=== PATIENT | male | born 1955 | race Caucasian/White ===

== ENCOUNTER → 2017-06-30 | Outpatient (CLI) | payer OTHER ==
[~2017-06-30] VITALS: Ht 177.8 cm; Wt 108.9 kg
[~2017-06-30] MED LIST: ACEON4 MG PO; ASPIRIN EC325 M1 PO; COZAAR 50 MG TA50 M2 PO; CRESTOR10 MG PO; FLONASE 0.05%50 MCG NASAL; GLUCOSAMINE1000 MG PO; PERINDOPRIL ERBU2 MG PO; TOPROL XL25 MG PO; TRAZODONE HCL100 MG PO; ZETIA10 MG PO; ZOFRAN ODT4 MG PO; ZYRTEC10 M5 PO
--- NOTE | ~2017-06-30 | CATHLAB ---
[facility] [place] [address] INVASIVE PROCEDURE REPORT Name: ISABELLE JARA [facility] [id number] Admission: 06/30/17 Attend Phys: Abdirahman Brito, Discharge: Date of : 57 Date of Service: 07/03/17 1755 Report #: [id number] THIS REPORT FOR: //name// APPROVED REPORT Patient Details Patient Status: Out-Patient Room #: The patient is a 62 year-old male Event Personnel Abdirahman Brito Mail Carrier Technician, Radha Farrell CVT Monitor, Jeremiah Wang Client Application Support Specialist, John Baez RN, Sonia Stern Monitor Procedures Performed Left Heart Cath Coronaries, Bypass Grafts [id number] [facility] Abdominal Aortography [id number] Hemostasis w/ Mynx Art Access - R femoral artery* Procedure Narrative The patient was brought electively to the Cardiac Catheterization Laboratory and was prepped and draped in a sterile manner. The Right Groin^ was infiltrated with subcutaneous anesthesia. A PINNACLE 6FR Sheath #[id number] sheath was inserted into the RFA 6 FR^. Coronary angiography was performed using coronary diagnostic catheters. The right coronary system was accessed and visualized with a JR 4 catheter. The left coronary system was accessed and visualized with a JL 4 catheter. The left ventricle was accessed and visualized with a Pigtail catheter. Left ventricular/Aortic Valve gradient assessed via catheter pullback. Left ventriculogram was performed in 30 degree projection. An aortogram of the abdominal aorta was performed. Pre-demployment femoral angiogram was performed . Closure device was deployed with a 6 Fr Mynx. The patient tolerated the procedure well and there were no complications associated with the procedure. There was no hematoma. Intraoperative Conscious Sedation Sedation start time: 08:35 Case end Time: 08:53 Fentanyl 50.0 mcg Versed 2.0 mg Fluoro Time: 321.00 minutes Dose: 995 mGy Contrast Type and Amount: Omnipaque [address] [facility] [address] [place] [address] INVASIVE PROCEDURE REPORT Name: ELIZABETH JARAOPOLDO Carmine Room #: [facility]#: [id number] Admission: 06/30/17 Attend Phys: Abdirahman Brito, Discharge: Date of : 57 Date of Service: 07/03/17 1755 Report #: [id number] Hemodynamics The aortic pressure is 156/88 mmHg with a mean of 70 mmHg. The left ventricular pressure is 163/13 mmHg with a mean of mmHg. The left ventricular end diastolic pressure is 25 mmHg. Conclusion #1 normal left ventricular size and systolic function EF 55-60% #2 normal abdominal aorta mild ectasia but single renal arteries widely patent no aneurysm #3 proximal occlusion of the LAD #4 ALCANTARA to LAD is intact the graft is widely patent and fills a mildly diseased LAD which extends around the apex. No occlusive disease #5 there is a radial graft to a large OM branch is widely patent #6 the angoon circumflex is a codominant vessel the proximal OM branch is occluded and filled via the radial graft the distal circumflex #7 the dominant right is pain with high-grade proximal disease just proximal to an anastomosis of the vein graft with mild irregularities distally filling a codominant PDA diffusely diseased #8 there is a vein graft with mildly ectatic mild irregularities filling this mid right acute marginal branch competitively filling a large preserved PDA off of the RCA. There is 50% mid RCA disease after the anastomosis. Recommendations and plan there is no indication for intervention alternative choice have flow no flow-limiting lesions are noted. Preserved LV function continue aggressive risk factor modification. 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 No lifting for 48 hours no line tub Jacuzzi or Cisneros for a week and resume home medications. Follow-up scheduled 6 months <ELECTRONICALLY SIGNED> By: Abdirahman Brito MD, FACC 07/03/171754 54 54 Abdirahman Brito MD, FACC /INF
[2017-06-30 07:31] VITALS: BP 145/87
== END ==
LOC: CATH 07:00
DX: I25.10 Atherosclerotic heart disease of native coronary artery without angina pectoris (principal); Z95.1 Presence of aortocoronary bypass graft; I10 Essential (primary) hypertension; E78.5 Hyperlipidemia, unspecified

== ENCOUNTER → 2020-04-04 | Outpatient (CLI) | payer OTHER | LOC: SJCVCIMAG 10:10 | PROVIDERS: ATTEND Internal Medicine Cardiovascular Disease | DX: I49.3 Ventricular premature depolarization (principal); I25.810 Atherosclerosis of coronary artery bypass graft(s) without angina pectoris; Z95.1 Presence of aortocoronary bypass graft ==

== ENCOUNTER → 2021-04-03 | Outpatient (CLI) | payer OTHER | LOC: SJCVCIMAG 07:21 | PROVIDERS: ATTEND Internal Medicine Cardiovascular Disease | DX: I65.23 Occlusion and stenosis of bilateral carotid arteries (principal); R06.00 Dyspnea, unspecified; I25.10 Atherosclerotic heart disease of native coronary artery without angina pectoris; E78.5 Hyperlipidemia, unspecified; I10 Essential (primary) hypertension; Z87.891 Personal history of nicotine dependence; Z79.82 Long term (current) use of aspirin; Z79.899 Other long term (current) drug therapy ==

== ENCOUNTER → 2021-10-28 | Outpatient (CLI) | payer OTHER | LOC: SJCVC 09:57 | PROVIDERS: ATTEND Internal Medicine Cardiovascular Disease | DX: R94.31 Abnormal electrocardiogram [ECG] [EKG] (principal); I25.10 Atherosclerotic heart disease of native coronary artery without angina pectoris; I10 Essential (primary) hypertension; E78.00 Pure hypercholesterolemia, unspecified; I65.23 Occlusion and stenosis of bilateral carotid arteries; G47.33 Obstructive sleep apnea (adult) (pediatric); Z95.1 Presence of aortocoronary bypass graft; Z79.82 Long term (current) use of aspirin; Z79.899 Other long term (current) drug therapy; Z72.89 Other problems related to lifestyle; Z87.891 Personal history of nicotine dependence ==